=== PATIENT | female | born 1985 | race African-American/Black ===

== ENCOUNTER 2022-05-29 18:59 | Emergency (ER) | payer MEDICAID ==
[~2022-05-29] VITALS: Ht 170.2 cm; Wt 84.0 kg
[2022-05-29 19:04] VITALS: BP 150/81
[2022-05-29] MEDS ORDERED: TETRACAINE 0.5% OPHTH DROPS 4ML BOTHEYE ONE (20:30)
[2022-05-29] MEDS ORDERED: FLUORESCEIN SODIUM 1MG/STRIP BOTHEYE ONE (20:30)
[2022-05-29] MEDS ORDERED: CIPR2.5D13 EACHEYE (20:43)
[2022-05-29] MEDS ORDERED: CYCL2DRO EACHEYE (20:43)
== END 2022-05-29 21:30 | disposition home or self-care (01) ==
LOC: ER 18:59
DX: S00.209A Unspecified superficial injury of unspecified eyelid and periocular area, initial encounter (principal); X58.XXXA Exposure to other specified factors, initial encounter; Y93.89 Activity, other specified; Y92.89 Other specified places as the place of occurrence of the external cause; Y99.8 Other external cause status
CPT/HCPCS: 99281